=== PATIENT | female | born 1995 | race Hispanic/Latino ===

== ENCOUNTER 2017-04-19 16:45 | Emergency (ER) | payer OTHER ==
[~2017-04-19] VITALS: Ht 160 cm; Wt 54.4 kg
== END 2017-04-19 19:39 | disposition home or self-care (01) ==
LOC: ED 16:45
PROC: 0PSPXZZ Reposition Right Metacarpal, External Approach (ICD-10-PCS; principal; 2017-04-19)
DX: S62.336A Displaced fracture of neck of fifth metacarpal bone, right hand, initial encounter for closed fracture (principal); S63.266A Dislocation of metacarpophalangeal joint of right little finger, initial encounter; W22.8XXA Striking against or struck by other objects, initial encounter; Z88.1 Allergy status to other antibiotic agents; Z88.0 Allergy status to penicillin
CPT/HCPCS: 26700; 73140; 99283

== ENCOUNTER 2017-05-18 19:36 | Emergency (ER) | payer OTHER ==
[~2017-05-18] VITALS: Ht 160 cm; Wt 135.0 kg
[2017-05-18] MEDS ORDERED: SETLAKIN 0.151 EACH PO (20:19)
[2017-05-18] MEDS ORDERED: IBUPROFEN200 MG PO (20:19)
== END 2017-05-18 21:35 | disposition home or self-care (01) ==
LOC: ED 19:36
DX: J11.1 Influenza due to unidentified influenza virus with other respiratory manifestations (principal); Z88.0 Allergy status to penicillin; Z88.1 Allergy status to other antibiotic agents
CPT/HCPCS: 87081; 87880; 99283